=== PATIENT | female | born 1975 | race Caucasian/White ===

== ENCOUNTER 2020-08-11 13:03 | Outpatient (CLI) | payer MEDICARE, MEDICAID ==
[~2020-08-11 13:03] MED LIST: ARIP2TAB5 PO; CITA20TA28 PO; CYCL-394 PO; DEXL60CA3 PO; FENO134C4 PO; GABA-338 PO; ZOLP5TAB8 PO; [UNRECOGNIZED DRUG - CODE] PO
== END 2020-08-11 23:59 | disposition home or self-care (01) ==
LOC: RAD 13:03
PROVIDERS: ATTEND Internal Medicine Gastroenterology
DX: K21.9 Gastro-esophageal reflux disease without esophagitis (principal); R13.11 Dysphagia, oral phase; R13.14 Dysphagia, pharyngoesophageal phase
CPT/HCPCS: 74230